=== PATIENT | female | born 1950 | race Caucasian/White ===

== ENCOUNTER 2018-05-14 10:06 | Emergency (ER) | payer MEDICARE, OTHER ==
[2018-05-14] MEDS: methylPREDNISolone INJ 125 MG/2 ML VIAL (J2930) IV (11:06)
[2018-05-14] MEDS: diphenhydrAMINE INJ 50MG/ML VIAL (J1200) IV (11:06)
[2018-05-14] MEDS: FAMOTIDINE IV BAG 20 MG in APPROPRIATE DILUENT 1 EA IV (11:06)
[2018-05-14] MEDS: KETOROLAC 30 MG/ML VIAL (J1885) IV (11:07)
== END 2018-05-14 12:53 | disposition home or self-care (01) ==
LOC: M ED 10:06
DX: T63.441A Toxic effect of venom of bees, accidental (unintentional), initial encounter (principal); Y92.9 Unspecified place or not applicable; Y93.9 Activity, unspecified; I10 Essential (primary) hypertension; Z79.899 Other long term (current) drug therapy
CPT/HCPCS: J1200